=== PATIENT | male | born 1985 | race Caucasian/White ===

== ENCOUNTER 2017-11-05 21:30 | Emergency (ER) | payer OTHER ==
[2017-11-05 22:08] VITALS: BP 128/78; PULSE 79; TEMP 98.8; BMI 29.8
[2017-11-05] MEDS ORDERED: IBUPROFEN 600 MG TABLET (FP) PO ONE (23:41)
--- NOTE | 2017-11-05 23:42 | PDOC ---
History of Present Illness - General Chief Complaint: Cold Symptoms Stated Complaint: COLD SYMPTOMS Time Seen by Provider: 11/05/17 23:19 History Source: Patient - History of Present Illness Initial Comments: 11/06/17 00:09 32-year-old male complaining c/o nasal congestion, runny nose, sinus congestion x 1 day with generalized bodyaches. + throat pain denies fever/ chills Past History - Past Medical History Allergies/Adverse Reactions: Allergies Allergy/AdvReac Type Severity Reaction Status Date / Time No Known Allergies Allergy Verified 11/05/17 22:08 Home Medications: Ambulatory Orders Acetaminophen W/ Codeine #3 [Tylenol # 3 -] 1 tab PO TID PRN #20 tablet Amox-Tr/K Cl [Augmentin 875-125mg Tablet -] 1 tab PO BID #20 tablet 04/11/13 Fluticasone Prop 0.05% Nasal [Flonase -] 1 - 2 spray NS BID #1 spray.pump COPD: No Kidney Stones: Yes - Immunization History Td Vaccination: Yes Immunization Up to Date: Yes - Suicide/Smoking/Psychosocial Hx Smoking Status: Yes Smoking History: Never smoked Years of Tobacco Use: 10 Have you smoked in the past 12 months: Yes Number of Cigarettes Smoked Daily: 10 Cigars Per Day: 0 Information on smoking cessation initiated: No 'Breaking Loose' booklet given: 04/06/13 Hx Alcohol Use: No Drug/Substance Use Hx: No Substance Use Type: None Hx Substance Use Treatment: No *Physical Exam - Vital Signs Last Vital Signs Temp Pulse Resp BP Pulse Ox 98.8 F 79 17 128/78 100 11/05/17 21:45 11/05/17 21:45 11/05/17 21:45 11/05/17 21:45 11/05/17 21:45 - Physical Exam General Appearance: Yes: Appropriately Dressed HEENT: positive: Tonsillar Erythema Neck: negative: Lymphadenopathy (R), Lymphadenopathy (L) Respiratory/Chest: positive: Lungs Clear, Normal Breath Sounds Cardiovascular: positive: Regular Rhythm, Regular Rate Gastrointestinal/Abdominal: positive: Normal Bowel Sounds, Soft Integumentary: positive: Normal Color, Dry, Warm Neurologic: positive: Fully Oriented, Alert, Normal Mood/Affect *DC/Admit/Observation/Transfer Diagnosis at time of Disposition: URI (upper respiratory infection) Qualifiers: URI type: unspecified viral URI Qualified Code(s): J06.9 - Acute upper respiratory infection, unspecified - Discharge Dispostion Disposition: HOME - Prescriptions Prescriptions: Fluticasone Prop 0.05% Nasal [Flonase -] 1 - 2 spray NS BID #1 spray.pump - Referrals - Patient Instructions Printed Discharge Instructions: DI for Viral Upper Respiratory Infection -- Adult Additional Instructions: drink plenty of fluids. take tylenol/ ibuprofen every 6 hours as needed for pain use flonase as prescribed. return to the ER if symptoms worsen. - Post Discharge Activity Forms/Work/School Notes: Back to Work
--- NOTE | 2017-11-05 23:45 | PDOC ---
*Physical Exam - Vital Signs Last Vital Signs Temp Pulse Resp BP Pulse Ox 98.8 F 79 17 128/78 100 11/05/17 21:45 11/05/17 21:45 11/05/17 21:45 11/05/17 21:45 11/05/17 21:45 Medical Decision Making - Medical Decision Making 11/05/17 23:45 agree with care from [facility] *DC/Admit/Observation/Transfer Diagnosis at time of Disposition: URI (upper respiratory infection) - Discharge Dispostion Disposition: HOME - Prescriptions Prescriptions: Fluticasone Prop 0.05% Nasal [Flonase -] 1 - 2 spray NS BID #1 spray.pump - Referrals - Patient Instructions Printed Discharge Instructions: DI for Viral Upper Respiratory Infection -- Adult Additional Instructions: drink plenty of fluids. take tylenol/ ibuprofen every 6 hours as needed for pain use flonase as prescribed. return to the ER if symptoms worsen. - Post Discharge Activity Forms/Work/School Notes: Back to Work
[2017-11-06] MEDS ORDERED: IBUPROFEN 600 MG TABLET (FP) PO ONE (00:03)
== END 2017-11-06 00:33 | disposition home or self-care (01) ==
LOC: JER 21:30 → JERFT 21:30 → JER 11-06 00:33
DX: J06.9 Acute upper respiratory infection, unspecified (principal)
CPT/HCPCS: 87070; 87430; 99281-25